=== PATIENT | male | born 1975 | race Two or more races ===

== ENCOUNTER → 2016-11-03 | Outpatient (CLI) | payer MEDICAID | LOC: BMCIMAGING 14:25 | PROVIDERS: ATTEND Physician Assistant | DX: M25.522 Pain in left elbow (principal) ==

== ENCOUNTER → 2016-12-23 | Outpatient (CLI) | payer MEDICAID | LOC: BMCIMAGING 14:23 | PROVIDERS: ATTEND Physician Assistant | DX: R05 Cough (principal) ==

== ENCOUNTER → 2017-06-27 | Outpatient (CLI) | payer MEDICAID | LOC: BMCIMAGING 12:49 | PROVIDERS: ATTEND Family Medicine | DX: R07.81 Pleurodynia (principal) | CPT/HCPCS: 71101-PO ==

== ENCOUNTER → 2017-10-18 | Outpatient (CLI) | payer MEDICAID | LOC: BMCIMAGING 12:27 | PROVIDERS: ATTEND Family Medicine | DX: R09.89 Other specified symptoms and signs involving the circulatory and respiratory systems (principal) ==